=== PATIENT | male | born 1975 | race Caucasian/White ===

== ENCOUNTER 2023-10-27 12:38 | Emergency (ER) | payer BC, SELFPAY ==
[2023-10-27 12:48] VITALS: BP 156/100
--- NOTE | 2023-10-27 13:17 | ED.GENMED ---
History of Present Illness
General
Chief Complaint: Rabies
Source: patient
Time Seen by Provider: 10/27/23 12:53
History of Present Illness
History of Present Illness:
48-year-old male with no significant past medical history presenting to the emergency department for evaluation for possible rabies immunization after noticing a bat in his room last night. Patient also notes that on there was a bat in the
main living room of the house. Patient currently has a jet man coming to the house to evaluate for possible bat nest. Patient is without any concerns at this time. He is here with his four sons for evaluation as well.
Past History
Past History
ED Past Medical History: None
ED Past Surgical History: None
Social History
Tobacco: Non-smoker
Alcohol: Occasional
Drug: None
Personal:
Living: with family
Employment: Employed
Review of Systems
Review of Systems
All Other Systems: ROS reviewed and negative except as documented in HPI and ROS
Phy Exam
Physical Exam
Physical Exam:
GENERAL: Alert , in no apparent distress
EYE: conjunctiva clear
Head: Normocephalic atraumatic
NECK: Supple,
ENT: mmm.
LUNGS: no acute respiratory distress
NEUROLOGICAL: Alert and oriented
SKIN: Warm and dry, skin intact.
MUSCULOSKELETAL: well perfused.
PSYCH: Normal and appropriate interaction.
Course
Vital Signs
Initial and Last Documented VS:
Initial Vital Signs
Temp Pulse Resp BP Pulse Ox
98.2 F 60 16 156/100 97
10/27/23 12:48 10/27/23 12:48 10/27/23 12:48 10/27/23 12:48 10/27/23 12:48
Last Documented Vital Signs
Temp Pulse Resp BP Pulse Ox
98.2 F 60 16 156/100 97
10/27/23 12:48 10/27/23 12:48 10/27/23 12:48 10/27/23 12:48 10/27/23 12:48
MDM/Problems Addressed
MDM/Problems Addressed:
48-year-old male presenting the emergency department for evaluation of bat exposure and possible rabies immunization. I had extensive conversation with patient in regards to the rabies vaccination as well as immunoglobulin, risk vs benefits of
vaccination, and patient ultimately would like to speak to his prior to initiating rabies series. Patient's currently in [place] on vacation and is not reachable at the moment. Patient does feel comfortable going home and will return
to the ER if decides to proceed with rabies series.
*Pulse Oximetry
Patient hypoxic: no
*Critical Care Note
Total Time (30-74mins, 75-104mins- exclusive of procedures): Not Applicable
ED Attending Note
-
Portions of this chart may have been created with voice recognition software.� Occasional wrong word or��sound alike� substitutions may have occurred due to the inherent limitations of voice recognition software.
Discharge Plan
Departure
Patient Disposition: Home (Routine Discharge)
Date of Disposition: 10/27/23
Time of Disposition: 13:17
Patient with high blood pressure during this ER visit?: Yes
Discharge Problem:
Exposure to bat without known bite
Instructions: Rabies Vaccine CDC Vaccine Information Statement (VIS)
Interventions
Interventions:
*Risk Screen - Suicide Last Done: 10/27/23 13:08
*General Assessment Last Done: 10/27/23 12:48
*Neglect/Abuse Screening Last Done: 10/27/23 13:08
ED- Fall Risk Assessment Last Done: 10/27/23 13:08
*ED COVID-19 Vaccine History Last Done: 10/27/23 12:48
*Nursing Disposition Last Done: 10/27/23 13:26
Discharge Date and Time
Print Language: [id number]
== END 2023-10-27 13:33 | disposition home or self-care (01) ==
LOC: EMR 12:38
PROVIDERS: EMERGENCY PHYSICIAN Emergency Medicine; FAMILY PHYSICIAN Family Medicine
DX: Z20.3 Contact with and (suspected) exposure to rabies (principal); R03.0 Elevated blood-pressure reading, without diagnosis of hypertension
CPT/HCPCS: 99281

== ENCOUNTER 2023-10-28 11:02 | Emergency (ER) | payer BC, SELFPAY ==
[2023-10-28 11:20] VITALS: BP 151/98
--- NOTE | 2023-10-28 11:54 | ED.GENMED ---
History of Present Illness
General
Chief Complaint: Rabies
Source: patient
Time Seen by Provider: 10/28/23 11:06
History of Present Illness
History of Present Illness:
48-year-old male presenting back to the emergency department after being seen yesterday for possible bat exposure. Patient discussed rabies series with and ultimately decided he would like to proceed with getting the rabies vaccinations.
Patient has no other complaints at this time.
Past History
Past History
ED Past Medical History: None
ED Past Surgical History: None
Social History
Tobacco: Non-smoker
Alcohol: Occasional
Drug: None
Personal:
Living: with family
Employment: Employed
Review of Systems
Review of Systems
All Other Systems: ROS reviewed and negative except as documented in HPI and ROS
Phy Exam
Physical Exam
Physical Exam:
GENERAL: Alert , in no apparent distress
EYE: conjunctiva clear
Head: Normocephalic atraumatic
NECK: Supple,
ENT: mmm.
LUNGS: no acute respiratory distress
NEUROLOGICAL: Alert and oriented
SKIN: Warm and dry, skin intact.
MUSCULOSKELETAL: well perfused.
PSYCH: Normal and appropriate interaction.
Scores
Heart Failure Risk
Heart Failure Risk Score: Not Applicable
Heart Score for Chest Pain Patients
STEMI patient?: Not applicable
Withdrawal Assessment of Alcohol
Withdrawal Assessment Completed?: Not applicable
Course
Orders/Labs/Results
Orders:
Orders
10/28/23 12:03
Rabies Immune Globulin/Pf [HyperRAB] 1,864 unit IM NOW STA
10/28/23 12:15
Rabies Vaccine (Pcec)/Pf [Rabavert Rabies Vacc W-Diluent] 2.5 unit IM .ONCE ONE
Vital Signs
Initial and Last Documented VS:
Initial Vital Signs
Temp Pulse Resp BP Pulse Ox
98.7 F 68 18 151/98 98
10/28/23 11:20 10/28/23 11:20 10/28/23 11:20 10/28/23 11:20 10/28/23 11:20
Last Documented Vital Signs
Temp Pulse Resp BP Pulse Ox
98.7 F 68 18 151/98 98
10/28/23 11:20 10/28/23 11:20 10/28/23 11:20 10/28/23 11:20 10/28/23 11:20
MDM/Problems Addressed
MDM/Problems Addressed:
48-year-old male presenting back to the emergency department for evaluation after possible bat exposure. Patient would like to proceed with rabies vaccination series. Provided with vaccine schedule and prescription for outpatient infusion center.
Aware of return precautions to the ER. Stable for discharge home.
*Critical Care Note
Total Time (30-74mins, 75-104mins- exclusive of procedures): Not Applicable
ED Attending Note
-
Portions of this chart may have been created with voice recognition software.� Occasional wrong word or��sound alike� substitutions may have occurred due to the inherent limitations of voice recognition software.
Discharge Plan
Departure
Patient Disposition: Home (Routine Discharge)
Date of Disposition: 10/28/23
Time of Disposition: 11:54
Patient with high blood pressure during this ER visit?: Yes
Discharge Problem:
Exposure to bat without known bite, Encounter for immunization
Stand Alone Forms: Rabies Vaccine Post Exp Dosing
Interventions
Interventions:
*Risk Screen - Suicide Last Done: 10/28/23 11:35
*General Assessment Last Done: 10/28/23 11:35
*Neglect/Abuse Screening Last Done: 10/28/23 11:35
ED- Fall Risk Assessment Last Done: 10/28/23 11:35
*ED COVID-19 Vaccine History Last Done: 10/28/23 11:35
*Nursing Disposition Last Done: 10/28/23 13:11
Discharge Date and Time
Discharge Date/Time: 10/28/23 13:12
Print Language: [id number]
[2023-10-28] MEDS: RABAVERT RABIES VACC W-DILUENT 2.5 UNIT IM (12:58)
[2023-10-28] MEDS: HyperRAB 1864 UNIT IM (12:59)
== END 2023-10-28 13:12 | disposition home or self-care (01) ==
LOC: EMR 11:02
PROVIDERS: EMERGENCY PHYSICIAN Emergency Medicine; FAMILY PHYSICIAN Family Medicine
DX: Z20.3 Contact with and (suspected) exposure to rabies (principal); Z23 Encounter for immunization; R03.0 Elevated blood-pressure reading, without diagnosis of hypertension
CPT/HCPCS: 99284; 90471; 96372; 90375; 90675

== ENCOUNTER 2023-11-05 10:07 | Outpatient (RCR) | payer BC, SELFPAY ==
[2023-10-31 14:40] VITALS: BP 154/91
[2023-10-31] MEDS: RABAVERT RABIES VACC W-DILUENT 2.5 UNIT IM (14:42)
[2023-11-05] MEDS: RABAVERT RABIES VACC W-DILUENT 2.5 UNIT IM (10:20)
[2023-11-05 10:25] VITALS: BP 134/90
== END 2023-11-05 13:43 | disposition home or self-care (01) ==
LOC: OID 10:07
PROVIDERS: ATTENDING PHYSICIAN Emergency Medicine; FAMILY PHYSICIAN Family Medicine
DX: Z23 Encounter for immunization (principal); Z20.3 Contact with and (suspected) exposure to rabies
CPT/HCPCS: 90471; 90675

== ENCOUNTER 2023-11-13 14:40 | Outpatient (RCR) | payer BC, SELFPAY ==
[2023-11-13 14:52] VITALS: BP 129/81
[2023-11-13] MEDS: RABAVERT RABIES VACC W-DILUENT 2.5 UNIT IM (14:59)
== END 2023-11-14 08:52 | disposition home or self-care (01) ==
LOC: OID 14:40
PROVIDERS: ATTENDING PHYSICIAN Emergency Medicine; FAMILY PHYSICIAN Family Medicine
DX: Z20.3 Contact with and (suspected) exposure to rabies (principal); Z23 Encounter for immunization
CPT/HCPCS: 90471; 90675